=== PATIENT | male | born 1970 | race Caucasian/White ===

== ENCOUNTER 2017-10-26 15:46 | Emergency (ER) | payer SELFPAY ==
[2017-10-26 15:47] VITALS: BP 167/118; PULSE 117; RESP 20; TEMP 36.7; O2SAT 97; BMI 25.2
--- NOTE | 2017-10-26 16:30 | ED.VISSUMM ---
- ER Visit Summary Date of Service: 10/26/17 Chief Complaint: Methadone withdrawal History of Present Illness: The patient is a 47 M who states that he moved here from [place] about 3 months ago. He has no local pain management physician or primary care physician. States she has been on methadone for several years. He is taking 60 mg once a day. His last dose was 5 days ago. He states he been driving back and forth to [place] to get this filled, but can no longer afford this. She reports that he is also typically on lisinopril 10 mg per day and has not had that for approximately 1 week. On review of systems he complains of chills and abdominal pain. No fever, nausea, vomiting, or diarrhea. States that he has a headache that stated 10 severity and back pain is 10 out of 10 in severity. Physical Examination: Vitals: 98.1, 167/118, 117, 20, 97% emergency not hypoxic. General: A&O x 3. NAD. Cardiovascular exam: Regular rate and rhythm, no murmur, rub or gallop. Respiratory exam: Clear to auscultation bilaterally. No wheezes or stridor. Abdominal exam: Soft, nontender, nondistended, normal bowel sounds. No peritoneal signs. Back: Diffuse moderate tenderness to palpation over the lumbar spine and the paraspinous musculature in the lumbar region. No point tenderness. Negative straight leg bilaterally. 5/5 DF, PF, EHL bilaterally. Normal sensation to light touch throughout. Extremity: No clubbing, cyanosis, or edema. Emergency Department Course and Treatment: An [facility]AS report was obtained which shows no prescriptions for [place] or [place]. Patient was given a dose of oxycodone, lisinopril, clonidine, and Phenergan p.o. Treatment Plan: The patient was discussed with the staff for Dr. Canseco and can be seen by her October 29. He will be given a prescription for 20 Percocet, clonidine, and Phenergan for symptom control. Instructed to follow-up with her for further evaluation. Is also instructed to follow-up the [facility] for further treatment of his blood pressure. Return to the emergency department for any worsening symptoms. Disposition: To home in improved and stable condition. Impression: 1. Hypertension. 2. Chronic back pain. 3. Opiate withdrawal. This note was generated with [employer] software. It may contain incorrect words, spelling, and punctuation that were not noted in review of the chart prior to signing ED Disposition - Plan for ED Patient: Disposition: Home or Assisted Living Chief Complaint: Subst Abuse Instructions: ED Withdrawal Narcotic Prescriptions: Oxycodone HCl/Acetaminophen [Percocet 5/325] 1 - 2 tablet PO Q6H PRN PRN 5 Days #20 tablet PRN Reason: Pain proMETHazine tablet [Phenergan] 25 mg PO Q6H PRN PRN #10 tablet PRN Reason: Nausea Lisinopril [Zestril] 10 mg PO DAILY #30 tablet Clonidine HCl 0.1 mg PO TID #12 tablet Referrals: Rayne Powell [NON-STAFF] - As soon as possible Additional Instructions: Follow-up with Dr. Stacy Canseco . She can see you on October 29. Call to make an appointment.
--- NOTE | 2017-10-26 16:34 | ED.DCSUM_ITS ---
- ER Visit Summary Date of Service: 10/26/17 Chief Complaint: Methadone withdrawal History of Present Illness: The patient is a 47 M who states that he moved here from [place] about 3 months ago. He has no local pain management physician or primary care physician. States she has been on methadone for several years. He is taking 60 mg once a day. His last dose was 5 days ago. He states he been driving back and forth to [place] to get this filled, but can no longer afford this. She reports that he is also typically on lisinopril 10 mg per day and has not had that for approximately 1 week. On review of systems he complains of chills and abdominal pain. No fever, nausea, vomiting, or diarrhea. States that he has a headache that stated 10 severity and back pain is 10 out of 10 in severity. Physical Examination: Vitals: 98.1, 167/118, 117, 20, 97% emergency not hypoxic. General: A&O x 3. NAD. Cardiovascular exam: Regular rate and rhythm, no murmur, rub or gallop. Respiratory exam: Clear to auscultation bilaterally. No wheezes or stridor. Abdominal exam: Soft, nontender, nondistended, normal bowel sounds. No peritoneal signs. Back: Diffuse moderate tenderness to palpation over the lumbar spine and the paraspinous musculature in the lumbar region. No point tenderness. Negative straight leg bilaterally. 5/5 DF, PF, EHL bilaterally. Normal sensation to light touch throughout. Extremity: No clubbing, cyanosis, or edema. Emergency Department Course and Treatment: An OAS report was obtained which shows no prescriptions for [place] or [place]. Patient was given a dose of oxycodone, lisinopril, clonidine, and Phenergan p.o. Treatment Plan: The patient was discussed with the staff for Dr. Canseco and can be seen by her October 29. He will be given a prescription for 20 Percocet, clonidine, and Phenergan for symptom control. Instructed to follow-up with her for further evaluation. Is also instructed to follow-up the [facility] for further treatment of his blood pressure. Return to the emergency department for any worsening symptoms. Disposition: To home in improved and stable condition. Impression: 1. Hypertension. 2. Chronic back pain. 3. Opiate withdrawal. This note was generated with [employer] software. It may contain incorrect words, spelling, and punctuation that were not noted in review of the chart prior to signing ED Disposition - Plan for ED Patient: Disposition: Home or Assisted Living Chief Complaint: Subst Abuse Instructions: ED Withdrawal Narcotic Prescriptions: Oxycodone HCl/Acetaminophen [Percocet 5/325] 1 - 2 tablet PO Q6H PRN PRN 5 Days #20 tablet PRN Reason: Pain proMETHazine tablet [Phenergan] 25 mg PO Q6H PRN PRN #10 tablet PRN Reason: Nausea Lisinopril [Zestril] 10 mg PO DAILY #30 tablet Clonidine HCl 0.1 mg PO TID #12 tablet Referrals: [facility] Powell [NON-STAFF] - As soon as possible Additional Instructions: Follow-up with Dr. Stacy Canseco . She can see you on October 29. Call to make an appointment.
[2017-10-26] MEDS: Lisinopril 10 MG Tablet PO (16:49)
[2017-10-26] MEDS: proMETHazine 25 MG Tablet PO (16:49)
[2017-10-26] MEDS: oxyCODONE 5 MG Tablet 10 MG PO (16:50)
[2017-10-26] MEDS: Clonidine HCl 0.1 MG, Clonidine HCl 0.2 MG 0.3 MG PO (16:52)
[2017-10-26 16:55] VITALS: BP 167/100; PULSE 103; RESP 18; O2SAT 97
--- NOTE | 2017-10-26 16:56 | ED.RN ---
DR. SOARES AWARE THAT PT'S BP IS HIGH AND STATES IS OKAY TO D/C. REVIEWED D/C INSTRUCTIONS, FOLLOW UP CARE, PRESCRIPTIONS, AND S/S THAT WOULD WARRANT A RETURN TO THE ED WITH PT. PT VERBALIZED AN UNDERSTANDING AND DENIES FURTHER QUESTIONS FOR THIS RN. PT SKIN P/W/D, RESP EVEN AND UNLABORED, PT A&O X 3, NO DISTRESS NOTED. PT AMBULATED OUT OF ED, GAIT STEADY.
== END 2017-10-26 16:58 | disposition home or self-care (01) ==
LOC: ED 16:39
PROVIDERS: Emergency Provider Emergency Medicine
DX: F11.23 Opioid dependence with withdrawal (principal); I10 Essential (primary) hypertension; M54.5 Low back pain; G89.29 Other chronic pain; Z79.891 Long term (current) use of opiate analgesic; Z79.899 Other long term (current) drug therapy
CPT/HCPCS: 99283